=== PATIENT | female | born 1990 | race Hispanic/Latino ===

== ENCOUNTER 2017-09-30 07:42 | Inpatient (IN) | payer MEDICAID ==
[2017-09-30] MEDS ORDERED: LACTATED RINGERS 1,000 ML IV SCH ×2 (11:00→17:00)
[2017-09-30] MEDS ORDERED: PITOCin/NS 30 UNIT/500ML 30 UNITS/500 ML BAG IV SCH ×2 (14:00→17:00)
[2017-09-30] MEDS ORDERED: XYLOCAINE 2% INFILTRATI ONE (16:44)
[2017-09-30] MEDS ORDERED: MINERAL OIL PO PRN (16:44)
[2017-09-30] MEDS ORDERED: SUBLIMAZE IV PRN (16:44)
[2017-09-30] MEDS ORDERED: PHENERGAN PO PRN ×2 (16:44→21:55)
[2017-09-30] MEDS ORDERED: BRETHINE IVP PRN (16:44)
[2017-09-30] MEDS ORDERED: ePHEDrine SULFATE IV PRN (16:44)
[2017-09-30] MEDS ORDERED: BRETHINE SUB-Q PRN (16:44)
[2017-09-30] MEDS ORDERED: STADOL IV PRN (16:44)
[2017-09-30] MEDS ORDERED: SUBLIMAZE IV ONE (16:46)
--- NOTE | 2017-09-30 16:56 | History and Physical Report ---
History of Present Illness Date of examination: 09/30/17 Date of admission: 09/30/17 10:24 Chief complaint: I'm in labor History of present illness: Patient is a 27 year old who presents in active labor. Her course was complicated by chlamydia and trichomonas early in , both of which were retested negative. She has otherwise been uncomplicated. Past History Past Medical History: no pertinent history Past Surgical History: no surgical history [employer] History: chlamydia, trichomonas Family/Genetic History: none Social history: single - Obstetrical History Expected Date of Delivery: 10/08/17 Actual Gestation: 38 Week(s) 6 Day(s) : 2 Para: 0 Medications and Allergies Allergies Allergy/AdvReac Type Severity Reaction Status Date / Time No Known Allergies Allergy Unverified 09/30/17 08:23 Home Medications Medication Instructions Recorded Confirmed Last Taken Type Pnv,Calcium 72/Iron/Folic Acid 1 tab PO DAILY 09/30/17 09/30/17 Unknown History [Preplus Ca-Fe 27 mg-FA 1 mg Tb] Active Meds: Active Medications Butorphanol Tartrate (Stadol) 1 mg IV Q2H PRN PRN Reason: Pain, Moderate (4-6) Ephedrine Sulfate (Ephedrine Sulfate) 10 mg IV Q2M PRN PRN Reason: Hypotension Fentanyl (Sublimaze) 100 mcg IV Q2H PRN PRN Reason: Labor Pain Lactated Ringer's (Lactated Ringers) 1,000 mls @ 125 mls/hr IV DIRECT ROXIE Last Admin: 09/30/17 11:22 Dose: 125 mls/hr Oxytocin/Sodium Chloride (Pitocin/Ns 30 Unit/500ml) 30 units in 500 mls @ 4 mls /hr IV TITR ROXIE; Protocol Last Admin: 09/30/17 14:42 Dose: 4 mls/hr, 4 mls/hr Lactated Ringer's (Lactated Ringers) 1,000 mls @ 125 mls/hr IV DIRECT ROXIE Oxytocin/Sodium Chloride (Pitocin/Ns 20 Unit/1000ml Drip) 20 units in 1,000 mls @ 125 mls/hr IV DIRECT ROXIE Oxytocin/Sodium Chloride (Pitocin/Ns 30 Unit/500ml) 30 units in 500 mls @ 4 mls /hr IV TITR ROXIE; Protocol Lidocaine (Xylocaine 2%) 20 ml INFILTRATI ONCE ONE Stop: 09/30/17 16:45 Mineral Oil (Mineral Oil) 30 ml PO QHS PRN PRN Reason: Constipation Promethazine HCl (Phenergan) 25 mg PO Q6H PRN PRN Reason: Nausea And Vomiting Terbutaline Sulfate (Brethine) 0.25 mg SUB-Q ONCE PRN PRN Reason: Hyperstimulation/Hypertonicity Terbutaline Sulfate (Brethine) 0.25 mg IVP ONCE PRN PRN Reason: Hyperstimulation/Hypertonicity Review of Systems All systems: negative Genitourinary: leakage of fluid, pelvic pain, contractions - Vital Signs Vital signs: Vital Signs Pulse BP 85 115/62 09/30/17 08:14 09/30/17 08:14 Temp Pulse Resp BP Pulse Ox 97.7 F 73 14 150/80 0 L 09/30/17 08:18 09/30/17 16:29 09/30/17 09:56 09/30/17 16:29 09/30/17 13:56 - Physical Exam Breasts: Cardiovascular: Regular rate, Normal S1, Normal S2 Lungs: Positive: Clear to auscultation, Normal air movement Abdomen: Positive: normal appearance, soft, normal bowel sounds. Negative: distention, tenderness Vulva: both: normal Vagina: Positive: normal moisture. Negative: discharge Cervix: Negative: lesion, discharge Uterus: Positive: normal size, normal contour Adnexa: both: normal Anus/Rectum: Positive: normal perianal skin, heme negative. Negative: rectal mass, hemorrhoids Extremities: Deep Tendon Reflex Grade: Normal +2 - Obstetrical Cervical Dilatation: 4 Cervical Effacement Percentage: 90 station: -2 Uterine Contraction Pattern: Irregular Uterine Tone Measurement Phase: Resting Results All other labs normal. Assessment and Plan IUP at 38.6 weeks in active labor. Admit to L&D. Anticipate
[2017-09-30] MEDS ORDERED: PITOCin/NS 20 UNIT/1000ML DRIP 20 UNITS/1,000 ML BAG IV SCH (17:00)
[2017-09-30 19:17] LABS: Hematocrit 35.5 % (30.3-42.9); Hemoglobin 11.4 gm/dl (10.1-14.3); Mean Corpuscular HGB Conc 32 % (30-34); Mean Corpuscular Hemoglobin 29 pg (28-32); Mean Corpuscular Volume 89 fl (79-97); Red Blood Count 4.01 M/mm3 (3.65-5.03)
[2017-09-30 19:23] LABS: Platelet Count 134 K/mm3 (140-440)
--- NOTE | 2017-09-30 20:13 | Procedure Note ---
OB Delivery Note - Delivery Date of Delivery: 09/30/17 Surgeon: VERO WOOD Estimated blood loss: 200cc - Vaginal Delivery presentation: vertex Delivery position: OA Intrapartum events: none Delivery induction: none Delivery augmentation: pitocin Delivery monitor: external FHT, external uterine Route of delivery: Delivery placenta: spontaneous Delivery cord: 3 umbilical vessels Episiotomy: none Delivery laceration: none Anesthesia: none Delivery comments: Viable female delivered over intact perineum with 3vc. Apgars 8,9. Weight 7 pounds 1 ounce. Infant placed on maternal abdomen. Cord clamped and cut when done pulsating. Placenta delivered spontaneously and intact with 3vc. Small mucosal laceration was hemostatic and was not repaired. Patient tolerated procedure well. Excellent hemostasis. - A at 1 minute: 8 at 5 minutes: 9 Infant Gender: Female
[2017-09-30] MEDS ORDERED: NORCO 5/325 PO PRN (21:55)
[2017-09-30] MEDS ORDERED: PHENERGAN PR PRN (21:55)
[2017-09-30] MEDS ORDERED: ZOFRAN IV PRN (21:55)
[2017-09-30] MEDS ORDERED: BENADRYL PO PRN (21:55)
[2017-09-30] MEDS ORDERED: MILK OF MAGNESIA PO PRN (21:55)
[2017-09-30] MEDS ORDERED: DULCOLAX PR PRN (21:55)
[2017-09-30] MEDS ORDERED: TUCKS PAD TP PRN (21:55)
[2017-09-30] MEDS ORDERED: TYLENOL PO PRN (21:55)
[2017-09-30] MEDS ORDERED: SODIUM CHLORIDE FLUSH SYRINGE 10 ML IV NR (21:55)
[2017-09-30] MEDS ORDERED: LANSINOH TP PRN (21:55)
[2017-09-30] MEDS: COLACE PO SCH (23:43)
[2017-09-30] MEDS: MOTRIN PO SCH (23:43)
[2017-10-01] MEDS ORDERED: DERMOPLAST TP PRN (01:40)
[2017-10-01] MEDS: MOTRIN PO SCH ×3 (05:51→18:15)
[2017-10-01] MEDS ORDERED: BOOSTRIX IM ONE (06:00)
[2017-10-01 09:41] LABS: Hematocrit 33.8 % (30.3-42.9)
[2017-10-01] MEDS: COLACE PO SCH (11:55)
[2017-10-01] MEDS: PRENATAL VITAMIN PO SCH (13:41)
[2017-10-02] MEDS: MOTRIN PO SCH ×3 (01:27→12:40)
[2017-10-02] MEDS: COLACE PO SCH ×2 (01:27→12:40)
--- NOTE | 2017-10-02 11:35 | Progress Note ---
Assessment and Plan A: PPD# 2 s/p at term P: Discharge today with follow up in [address] Mcmillan Subjective - Subjective Date of service: 10/02/17 Principal diagnosis: s/p at term Interval history: No overnight events. Pt would like to go home. Patient reports: appetite normal, voiding normally, pain well controlled, ambulating normally, no nauseated [place]: doing well Objective - Vital Signs Latest vital signs: Vital Signs Temp Pulse Resp BP BP Pulse Ox 10/02/17 08:20 99.0 F 71 18 100/56 97 10/02/17 00:43 98.6 F 76 16 99/50 10/01/17 16:53 98.3 F 81 18 110/48 96 Intake and Output 10/01/17 10/02/17 10/02/17 22:59 06:59 14:59 Intake Total 640 120 600 Output Total 500 Balance 140 120 600 Intake: Oral 460 480 Intake, Free Water 180 120 120 Output: Urine 500 Void 500 Other: Total, Intake Amount 460 480 Total, Output Amount 500 # Voids Void 1 1 - Exam Breasts: Present: deferred Cardiovascular: Present: Regular rate Lungs: Present: Clear to auscultation Abdomen: Present: soft Uterus: Present: fundal height below umbilicus Extremities: Present: normal
--- NOTE | 2017-10-02 11:36 | Discharge Summary ---
Providers - Providers Date of Admission: 09/30/17 10:24 Date of discharge: 10/02/17 Attending physician: VERO WOOD Primary care physician: VERO WOOD Hospitalization Reason for admission: active labor Delivery: Procedure details: Please see delivery note. Episiotomy: none Laceration: other (mucosal laceration ) Other procedures: none complications: none Discharge diagnosis: IUP at term delivered baby: female Hospital course: Pt underwent which she tolerated well. Her course was uncomplicated, and she met discharge criteria on PPD#2. She will follow up with Dr Wood in 6 wks. Condition at discharge: Stable Disposition: DC-01 TO HOME OR SELFCARE - Discharge Diagnoses (1) Term of female Status: Acute Plan - Discharge Medications Prescriptions: HYDROcodone/APAP 5-325 [[place] 5/325] 1 each PO Q6HR PRN #20 tablet PRN Reason: Pain , Severe (7-10) Ibuprofen [Motrin] 800 mg PO Q8HR PRN #30 tablet PRN Reason: Pain, Moderate (4-6) - Provider Discharge Summary Activity: routine, no sex for 6 weeks, no heavy lifting 4 weeks, no strenuous exercise Diet: routine Instructions: routine Additional instructions: [] Smoking cessation referral if applicable(refer to patient education folder for contact #) [] Refer to [facility] Booklet Call your doctor immediately for: * Fever > 100.5 * Heavy vaginal bleeding ( >1 pad per hour) * Severe persistent headache * Shortness of breath * Reddened, hot, painful area to leg or breast * Drainage or odor from incision. * Keep incision clean and dry at all times and follow doctor's instructions regarding bathing/showering - Follow up plan Follow up: VERO WOOD MD [Primary Care Provider] - 6 Weeks (please call to schedule appt )
[2017-10-02] MEDS: PRENATAL VITAMIN PO SCH (12:40)
[2017-10-02 13:11] VITALS: BP 120/66
== END 2017-10-02 14:10 | disposition home or self-care (01) | DRG 774 ==
LOC: TRG 07:42 → LD 10:24 → OB 21:19
PROVIDERS: ADMIT Obstetrics & Gynecology; ATTEND Obstetrics & Gynecology
PROC: 10E0XZZ Delivery of Products of Conception, External Approach (ICD-10-PCS; principal; 2017-09-30)
PROC: 3E0234Z Introduction of Serum, Toxoid and Vaccine into Muscle, Percutaneous Approach (ICD-10-PCS; 2017-10-01)
DX: O98.82 Other maternal infectious and parasitic diseases complicating childbirth (principal); O71.89 Other specified obstetric trauma; O98.32 Other infections with a predominantly sexual mode of transmission complicating childbirth; Z3A.38 38 weeks gestation of pregnancy; Z37.0 Single live birth; Z23 Encounter for immunization; A59.9 Trichomoniasis, unspecified
CPT/HCPCS: 36415; 85014; 85018; 85027; 86592; 86850; 86900; 86901; 90471; 90715; 99211; A6250; G0463; J2590; J3010; J7120

== ENCOUNTER 2020-08-24 08:03 | Day surgery (SDC) | payer MEDICAID ==
[~2020-08-24 08:03] MED LIST: ACETAMINOPHEN 500 MG TAB PO SCH; BUPIVACAINE/PF (0.25%) 2.5 MG/ML 30 ML VIAL INFILTRATI ONE; CELECOXIB 200 MG CAP PO NR; GABAPENTIN 300 MG CAP PO NR; LACTATED RINGERS 1,000 ML IV SCH; MIDAZOLAM 2 MG/2 ML INJ IV NR; SCOPOLAMINE TRANSDERMAL PATCH 72 HR TD NR
[2020-08-24] MEDS ORDERED: HYDROmorphone 1 MG/1 ML INJ IV PRN (09:21)
[2020-08-24] MEDS ORDERED: ONDANSETRON 4 MG/2 ML INJ IV PRN (09:21)
[2020-08-24] MEDS ORDERED: oxyCODONE /ACETAMINOPHEN 5-325MG TAB PO PRN (09:21)
--- NOTE | 2020-08-24 09:21 | Anesthesia Day of Surgery ---
Anesthesia Day of Surgery - Day of Surgery Patient Examined: Yes Patient H&P Reviewed: Yes Patient is NPO: Yes
--- NOTE | 2020-08-24 09:21 | Anesthesia Consultation ---
Anesthesia Consult and Med Hx Date of service: 08/24/20 - Airway Anesthetic Teeth Evaluation: Good ROM Head & Neck: Adequate Mental/Hyoid Distance: Adequate Mallampati Class: Class I Intubation Access Assessment: Good - Pre-Operative Health Status ASA Pre-Surgery Classification: ASA2 Proposed Anesthetic Plan: General - Pulmonary Hx Smoking: Yes Hx Asthma: Yes (last inhaler use 2+ yrs ago) Hx Respiratory Symptoms: No - Cardiovascular System Hx Hypertension: No - Central Nervous System Hx Seizures: Yes (last seizure 12-15yrs ago; no AEDs) - Endocrine Hx Renal Disease: No Hx Liver Disease: No Hx Insulin Dependent Diabetes: No Hx Non-Insulin Dependent Diabetes: No Hx Thyroid Disease: No - Additional Comments Anesthesia Medical History Comments: No prior GA. No FHx anesthetic complications.
[2020-08-24] MEDS ORDERED: BUPIVACAINE/PF (0.25%) 2.5 MG/ML 30 ML VIAL INFILTRATI ONE ×2 (10:27→11:55)
--- NOTE | 2020-08-24 10:29 | Short Stay Summary ---
Short Stay Documentation Date of service: 08/24/20 Narrative H&P: Pt is a 31 year old who presents for elective sterilization secondary to undesired fertility. - History Principal diagnosis: Undesired fertility H&P: obtained from office Past Medical History: No medical history Past Surgical History: No surgical history Social history: - Allergies and Medications Current Medications: Allergies No Known Allergies Allergy (Unverified 08/23/20 15:17) Home Medications Medication Instructions Recorded Confirmed Last Taken Type No Known Home Medications [No 08/23/20 08/23/20 Unknown History Reported Home Medications] Active Medications Acetaminophen (Acetaminophen 500 Mg Tab) 1,000 mg PO PREOP ROXIE Stop: 08/24/20 21:00 Celecoxib (Celecoxib 200 Mg Cap) 200 mg PO PREOP NR Stop: 08/24/20 21:00 Gabapentin (Gabapentin 300 Mg Cap) 300 mg PO PREOP NR Stop: 08/24/20 21:00 Hydromorphone HCl (Hydromorphone 1 Mg/1 Ml Inj) 0.5 mg IV Q10MIN PRN PRN Reason: Pain , Severe (7-10) Stop: 08/24/20 23:00 Lactated Ringer's (Lactated Ringers) 1,000 mls @ 100 mls/hr IV DIRECT ROXIE Stop: 08/24/20 23:59 Midazolam HCl (Midazolam 2 Mg/2 Ml Inj) 2 mg IV PREOP NR Stop: 08/24/20 21:00 Ondansetron HCl (Ondansetron 4 Mg/2 Ml Inj) 4 mg IV ONCE PRN PRN Reason: Nausea And Vomiting Stop: 08/24/20 15:00 Oxycodone/Acetaminophen (Oxycodone /Acetaminophen 5-325mg Tab) 1 tab PO ONCE PRN PRN Reason: Pain, Moderate (4-6) Stop: 08/24/20 20:00 Scopolamine (Scopolamine Transdermal Patch 72 Hr) 1 each TD PREOP NR Stop: 08/24/20 21:00 - Physical exam General appearance: no acute distress Lungs: Clear to auscultation, Normal air movement Breasts: deferred Heart: Regular rate, Normal S1, Normal S2 Gastrointestinal: normal, normoactive bowel sounds Female Genitourinary: deferred Rectal Exam: deferred Extremities: no ischemia - Brief post op/procedure progress note Date of procedure: 08/24/20 Pre-op diagnosis: Undesired fertility Post-op diagnosis: same Procedure: Laparoscopic Bilateral Fulguration Anesthesia: GETA Findings: Normal uterus tubes and ovaries Surgeon: VERO WOOD Estimated blood loss: 50-100ml Pathology: none Specimen disposition: to lab Condition: stable - Hospital course Hospital course: unremarkable - Disposition Condition at discharge: Good Disposition: DC- TO HOME OR SELFCARE Short Stay Discharge Plan Activity: advance as tolerated Weight Bearing Status: Weight Bear as Tolerated Diet: regular Follow up with: VERO WOOD MD [Staff Physician] - 14 Days Prescriptions: Ibuprofen [Motrin] 800 mg PO Q8HR PRN #40 tablet PRN Reason: Pain, Mild (1-3) HYDROcodone/APAP 5-325 [[place] 5/325] 2 each PO Q6HR PRN #20 tablet PRN Reason: Pain
[2020-08-24] MEDS ORDERED: propofoL 200 MG/20 ML VIAL IV ONE (10:41)
[2020-08-24] MEDS ORDERED: KETOROLAC 30 MG/1 ML INJ ONE ×2 (10:41→11:55)
[2020-08-24] MEDS ORDERED: ONDANSETRON 4 MG/2 ML INJ ONE (10:41)
[2020-08-24] MEDS ORDERED: LIDOCAINE MPF (2%) 20 MG/1 ML VIAL 5 ML ONE (10:41)
[2020-08-24] MEDS ORDERED: HYDROmorphone 1 MG/1 ML INJ ONE (10:41)
[2020-08-24] MEDS ORDERED: ROCURONIUM 50 MG/5 ML INJ IV ONE (10:41)
[2020-08-24] MEDS ORDERED: ceFAZolin/Water 2 GM/20 ML 2 GM/20 ML SYRINGE IV NR (11:00)
[2020-08-24] MEDS ORDERED: GLYCOPYRROLATE 0.4 MG/2 ML INJ ONE (11:35)
[2020-08-24] MEDS ORDERED: SUGAMMADEX SODIUM 200 MG/2 ML VIAL IV ONE (11:43)
--- NOTE | 2020-08-24 11:58 | Operative Report ---
Operative Report Operative Report: Preoperative diagnosis: Undesired fertility Postoperative diagnosis: Same Procedure: Bilateral tubal fulguration Surgeon: Niecy Mcmillan Anesthesia: General EBL: Minimal IV fluids: 1000 mL Urine output: 150 mL Findings: Normal uterus tubes and ovaries Specimens: None Complications: None The patient was properly identified as herself. She was then taken to the OR with IV running and in place. She was given general anesthesia without difficulty. She was placed in a dorsal lithotomy position. She was then prepped and draped in normal sterile fashion. Attention was turned to the patient's vagina. Her bladder was drained of clear urine with a red rubber catheter. The speculum was then placed the patient's vagina. The cervix was visualized and grasped with tenaculum. The acorn cannula was then inserted. The surgeon's gloves were changed and attention turned to the patient's abdomen. A small incision was made in the patient's umbilicus incision a 5 mm trocar was placed. The laparoscope confirmed intra-abdominal placement. The abdomen was insufflated with CO2 gas to approximately 25 mmHg. Both fallopian tubes were identified. With direct visualization a second trocar was placed through an incision in the left lower quadrant. Both tubes were found and followed out to the fimbriated ends. Each tube was cauterized at the mid portion until there was an area of approximately 3 cm burn in each tube. There was excellent hemostasis at the end of this portion of the procedure. Each tube was handed off for pathology. At this point the abdomen was deflated. All instruments were then removed from the abdomen. The incisions were then closed with 4-0 Monocryl. The incisions were also injected with quarter percent Marcaine. The patient tolerated the procedure well she was then awakened and taken recovery in stable condition. Sponge needle and instrument counts were correct 2.
[2020-08-24 13:30] VITALS: BP 110/65
--- NOTE | 2020-08-24 15:46 | Post Anesthesia Evaluation ---
- Post Anesthesia Evaluation Patient Participated: Yes Airway Patent: Yes Stable Respiratory Function: Yes Nausea/Vomiting: No Temp > 96.8F: Yes Pain Manageable: Yes Adequeate Hydration: Yes Anesthesia Complications: No
== END 2020-08-24 13:25 | disposition home or self-care (01) ==
LOC: OR 08:03
PROVIDERS: ATTEND Obstetrics & Gynecology
DX: Z30.2 Encounter for sterilization (principal); F17.210 Nicotine dependence, cigarettes, uncomplicated; J45.909 Unspecified asthma, uncomplicated; Z79.899 Other long term (current) drug therapy; Z98.890 Other specified postprocedural states
CPT/HCPCS: 58670; 81025; J0690; J1170; J1885; J2250; J2405; J2704; J7120